=== PATIENT | female | born 1995 | race Caucasian/White ===

== ENCOUNTER 2020-10-14 01:32 | Inpatient (IN) ==
[2020-10-14] MEDS: LACTATED RINGERS 1,000 ML IV SCH ×2 (02:30→13:40)
[2020-10-14 02:36] LABS: Bilirubin,Urine Negative (Negative); Blood, Urine Negative (Negative); Glucose,Urine (UA) >=500 mg/dL (Negative); Ketones,Urine Negative (Negative); Mucus,Urine Occasional /LPF (Occasional); Nitrite,Urine Negative (Negative); Protein,Urine 30 MG/DL; RBC,Urine 1 /HPF (0-4); Squamous Epithelial Cell,Urine Occasional /HPF (0-10); Urine Appearance CLEAR (Clear); Urine Color Straw (Yellow); Urine Specific Gravity 1.022 (1.001-1.035); Urine Urobilinogen < 2.0 EU/DL (0.2-1.0)
[2020-10-14] MEDS: hydrALAZINE 20 MG/1 ML VIAL IV PRN ×2 (02:36→03:07)
[2020-10-14 02:39] LABS: Basophils % 0.3 % (0.0-0.8); Eosinophils % 0.2 % (0.00-10.9); Hematocrit 36.6 VOL% (35.7-47.0); Hemoglobin 11.5 GM/DL (12.0-16.0); Immature Granulocytes % 0.3 %; Immature Granulocytes Absolute 0.02 #; Lymphocytes # 2.7 10*3/uL (1.4-4.0); Lymphocytes % 40.9 % (21.3-54.2); Mean Corpuscular HGB Conc 31.4 GM/DL (32-36); Mean Platelet Volume 12.5 FL (9.6-12.0); Monocytes % 9.7 % (1.7-12.7); Neutrophils % 48.6 % (38.7-73.9); Platelet Count 129 T/CUMM (130-400); Red Blood Count 4.52 MC/CUMM (3.8-5.5); Red Cell Distribution Width 13.8 % (9.3-17.3); White Blood Count 6.5 T/CUMM (4-12)
[2020-10-14 02:48] LABS: Protein/Creatinine Ratio,Urine 2.1 RATIO
[2020-10-14 02:55] LABS: INR 0.9; Partial Thromboplastin Time 29.3 SECS (23.9-33.8)
[2020-10-14 02:58] LABS: Alanine Aminotransferase 22 U/L (13-56); Alkaline Phosphatase 115 U/L (45-117); Aspartate Amino Transferase 21 U/L (0-37); Bilirubin,Total < 0.39 MG/DL (0.20-1.00); Blood Urea Nitrogen 5 MG/DL (7-18); Calcium 8.3 MG/DL (8.5-10.1); Carbon Dioxide 24 MMOL/L (21-32); Estimated Glom Filtration Rate 130 ML/MIN; Glucose 380 MG/DL (74-106); Potassium 3.7 MMOL/L (3.5-5.1); Sodium 136 MMOL/L (136-145); Total Protein 6.3 G/DL (6.4-8.2)
[2020-10-14] MEDS ORDERED: LABETALOL 100 MG/20 ML VIAL IV ONE (03:33)
[2020-10-14] MEDS: LABETALOL 100 MG TABLET PO SCH ×3 (05:00→22:07)
[2020-10-14] MEDS ORDERED: DEXTROSE 50% 25 GM/50 ML VIAL IV PRN ×2 (05:10→06:23)
[2020-10-14] MEDS ORDERED: GLUCAGON 1 MG VIAL IM PRN (05:10)
[2020-10-14] MEDS: INSULIN REGULAR 100 UNIT/ML SUBCUT SCH ×4 (05:22→23:07)
[2020-10-14 06:49] LABS: Barbiturates Screen,Urine Negative (Negative); Benzodiazepines Screen,Urine Negative (Negative); Cannabinoid Screen,Urine Negative (Negative); Opiate Screen,Urine Negative (Negative); Phencyclidine Screen,Urine Negative (Negative)
[2020-10-14] MEDS: BETAMETH SODIUM PHOS/ACETATE 30 MG/5 ML VIAL IM SCH ×2 (07:33→19:36)
[2020-10-14] MEDS: ONDANSETRON 4 MG/2 ML VIAL IV PRN (08:44)
[2020-10-15] MEDS: ONDANSETRON 4 MG/2 ML VIAL IV PRN (03:58)
[2020-10-15] MEDS: INSULIN REGULAR 100 UNIT/ML SUBCUT SCH ×4 (05:15→23:40)
[2020-10-15] MEDS: LABETALOL 100 MG TABLET PO SCH ×3 (05:30→21:55)
[2020-10-15 05:32] LABS: Basophils % 0.1 % (0.0-0.8); Hematocrit 37.2 VOL% (35.7-47.0); Hemoglobin 11.7 GM/DL (12.0-16.0); Immature Granulocytes % 0.6 %; Immature Granulocytes Absolute 0.05 #; Lymphocytes # 1.3 10*3/uL (1.4-4.0); Lymphocytes % 14.2 % (21.3-54.2); Mean Corpuscular HGB Conc 31.5 GM/DL (32-36); Mean Corpuscular Volume 80.7 FL (87-102); Mean Platelet Volume 12.3 FL (9.6-12.0); Monocytes % 4.1 % (1.7-12.7); Platelet Count 135 T/CUMM (130-400); Red Blood Count 4.61 MC/CUMM (3.8-5.5); White Blood Count 8.8 T/CUMM (4-12)
[2020-10-15] MEDS ORDERED: FAMOTIDINE 20 MG/2 ML VIAL IV ONE (08:00)
[2020-10-15] MEDS ORDERED: CITRIC ACID/SODIUM CITRATE 30 ML UDCUP PO ONE (08:00)
[2020-10-15] MEDS ORDERED: ceFAZolin 2,000 MG/50 ML DUPLEX IV ONE (08:00)
[2020-10-15] MEDS ORDERED: OXYTOCIN/LR 20 UNIT/1,000 ML BAG IV ONE ×3 (10:32→12:14)
[2020-10-15] MEDS ORDERED: miSOPROStoL 200 MCG TABLET ONE (10:32)
[2020-10-15] MEDS ORDERED: METHYLERGONOVINE 0.2 MG/1 ML AMP ONE (10:33)
[2020-10-15] MEDS ORDERED: CARBOPROST TROMETHAMINE 250 MCG/ML AMP IM ONE (10:33)
[2020-10-15] MEDS ORDERED: PHENYLEPHRINE 1 MG/10 ML SYRINGE IV ONE ×3 (10:41→11:32)
[2020-10-15] MEDS ORDERED: BUPIVACAINE SPINAL 0.75% 2 ML AMP SPINAL ONE (10:41)
[2020-10-15] MEDS ORDERED: ONDANSETRON 4 MG/2 ML VIAL ONE (10:41)
[2020-10-15] MEDS ORDERED: METOCLOPRAMIDE 10 MG/2 ML VIAL ONE (10:41)
[2020-10-15] MEDS ORDERED: propofoL 200 MG/20 ML VIAL IV ONE (11:22)
[2020-10-15] MEDS ORDERED: GLYCOPYRROLATE 0.4 MG/2 ML VIAL ONE (11:22)
[2020-10-15] MEDS ORDERED: ACETAMINOPHEN INJ 1,000 MG/100 ML VIAL IV ONE (11:31)
[2020-10-15 11:36] LABS: Cord Arterial Blood HCO3 17.6 MMOL/L
[2020-10-15 11:37] LABS: Cord Venous Blood HCO3 23.7 MMOL/L; Cord Venous Blood PCO2 63.9 MMHG; Cord Venous Blood PO2 19.1 MMHG
[2020-10-15 11:41] LABS: Bilirubin,Urine Negative (Negative); Blood, Urine Negative (Negative); Glucose,Urine (UA) >=500 mg/dL (Negative); Hyaline Casts,Urine 1 /LPF (0-3); Ketones,Urine 80 mg/dL (Negative); Mucus,Urine Occasional /LPF (Occasional); Nitrite,Urine Negative (Negative); Protein,Urine Negative; RBC,Urine 1 /HPF (0-4); Squamous Epithelial Cell,Urine Occasional /HPF (0-10); Urine Appearance CLEAR (Clear); Urine Color Yellow (Yellow); Urine Urobilinogen < 2.0 EU/DL (0.2-1.0)
[2020-10-15] MEDS ORDERED: oxyCODONE/ACETAMINOPHEN 5-325 MG TABLET PO PRN ×2 (11:52)
[2020-10-15] MEDS ORDERED: IBUPROFEN 800 MG TABLET PO PRN (11:52)
[2020-10-15] MEDS ORDERED: ACETAMINOPHEN 325 MG TABLET PO PRN (11:52)
[2020-10-15] MEDS ORDERED: WITCH HAZEL PADS 100/JAR TOP PRN (11:52)
[2020-10-15] MEDS ORDERED: LANOLIN 50% CREAM 0.3 OZ TUBE TOP PRN (11:52)
[2020-10-15] MEDS ORDERED: MEASLES/MUMPS/RUBELLA VACCINE 0.5 ML VIAL SUBCUT ONE (11:52)
[2020-10-15] MEDS ORDERED: BENZOCAINE 20%/MENTHOL 0.5% SPRAY 56 GM CAN TOP PRN (11:52)
[2020-10-15] MEDS ORDERED: BISACODYL 10 MG SUPP RECTAL PRN (11:52)
[2020-10-15] MEDS ORDERED: RHO(D) IMMUNE GLOBULIN 300 MCG SYRINGE IM ONE (11:52)
[2020-10-15] MEDS ORDERED: HYDROCORTISONE 2.5% RECTAL CREAM 30 GM TUBE TOP PRN (11:52)
[2020-10-15] MEDS ORDERED: DIPH/TET/ACEL PERT BOOSTER VACCINE 0.5 ML VIAL IM ONE (11:52)
[2020-10-15] MEDS ORDERED: ONDANSETRON 4 MG/2 ML VIAL IV PRN (11:52)
[2020-10-15] MEDS: KETOROLAC 30 MG/1 ML VIAL IV SCH ×2 (14:14→20:28)
[2020-10-15] MEDS: ACETAMINOPHEN 500 MG TABLET PO SCH ×2 (17:36→23:40)
[2020-10-15] MEDS: DOCUSATE SODIUM 100 MG CAPSULE PO SCH (20:31)
[2020-10-16] MEDS: KETOROLAC 30 MG/1 ML VIAL IV SCH ×2 (02:28→08:53)
[2020-10-16] MEDS: LABETALOL 100 MG TABLET PO SCH ×3 (05:30→21:37)
[2020-10-16] MEDS: ACETAMINOPHEN 500 MG TABLET PO SCH (05:30)
[2020-10-16] MEDS: INSULIN REGULAR 100 UNIT/ML SUBCUT SCH ×4 (05:30→21:52)
[2020-10-16 06:05] LABS: Basophils % 0.1 % (0.0-0.8); Hematocrit 33.8 VOL% (35.7-47.0); Hemoglobin 10.4 GM/DL (12.0-16.0); Immature Granulocytes % 0.4 %; Immature Granulocytes Absolute 0.05 #; Lymphocytes # 1.7 10*3/uL (1.4-4.0); Lymphocytes % 14.7 % (21.3-54.2); Mean Corpuscular HGB Conc 30.8 GM/DL (32-36); Mean Corpuscular Volume 82.4 FL (87-102); Mean Platelet Volume 13.4 FL (9.6-12.0); Neutrophils % 77.8 % (38.7-73.9); Platelet Count 128 T/CUMM (130-400); White Blood Count 11.6 T/CUMM (4-12)
[2020-10-16 06:24] LABS: Hypochromasia 1+; Microcytosis 1+
[2020-10-16 06:25] LABS: Platelet Estimate Adequate
[2020-10-16] MEDS: DOCUSATE SODIUM 100 MG CAPSULE PO SCH ×2 (08:53→21:37)
[2020-10-16] MEDS: INSULIN GLARGINE 100 UNIT/ML SUBCUT SCH (13:32)
[2020-10-16] MEDS ORDERED: SIMETHICONE CHEW 80 MG TABLET PO PRN (15:48)
[2020-10-16] MEDS ORDERED: MAGNESIUM HYDROXIDE SUSP 30 ML UDCUP PO PRN (15:48)
[2020-10-17] MEDS: INSULIN REGULAR 100 UNIT/ML SUBCUT SCH ×2 (07:45→11:30)
[2020-10-17] MEDS: INSULIN GLARGINE 100 UNIT/ML SUBCUT SCH (08:30)
[2020-10-17] MEDS: DOCUSATE SODIUM 100 MG CAPSULE PO SCH (08:30)
[2020-10-17] MEDS: LABETALOL 100 MG TABLET PO SCH (09:52)
[2020-10-17 10:51] VITALS: BP 161/78
== END 2020-10-17 12:50 | disposition home or self-care (01) | DRG 786 ==
LOC: N.LDOUT 01:32 → N.LD 01:34 → N.OB 10-16 10:25
PROVIDERS: ADMIT Specialist; ATTEND Specialist
PROC: LDCSECT (ICD-10-PCS; 2020-10-15 11:00)

== ENCOUNTER 2021-11-10 19:14 | Observation (INO) ==
[2021-11-10] MEDS ORDERED: LABETALOL 20 MG/4 ML SYRINGE IV STA ×2 (19:50→21:04)
[2021-11-10] MEDS ORDERED: SODIUM CHLORIDE 0.9% 1,000 ML IV STA (19:50)
[2021-11-10] MEDS ORDERED: ONDANSETRON 4 MG/2 ML VIAL IV STA (19:50)
[2021-11-10 20:30] LABS: Basophils % 0.2 % (0.0-0.8); Eosinophils # 0.1 10*3/uL (0.0-0.87); Eosinophils % 0.6 % (0.00-10.9); Hematocrit 43.4 VOL% (35.7-47.0); Immature Granulocytes % 0.2 %; Immature Granulocytes Absolute 0.02 #; Lymphocytes # 2.8 10*3/uL (1.4-4.0); Lymphocytes % 32.3 % (21.3-54.2); Mean Corpuscular HGB Conc 34.6 GM/DL (32-36); Mean Corpuscular Volume 81.6 FL (87-102); Mean Platelet Volume 11.1 FL (9.6-12.0); Monocytes # 0.6 10*3/uL (0.11-0.8); Neutrophils % 59.7 % (38.7-73.9); Platelet Count 227 T/CUMM (130-400); Red Blood Count 5.32 MC/CUMM (3.8-5.5); White Blood Count 8.8 T/CUMM (4-12)
[2021-11-10 20:50] LABS: Mucus,Urine Occasional /LPF (Occasional); RBC,Urine 1 /HPF (0-4); Squamous Epithelial Cell,Urine Occasional /HPF (0-10)
[2021-11-10 20:51] LABS: Bilirubin,Urine Negative (Negative); Blood, Urine Trace mg/dL (Negative); Glucose,Urine (UA) >=1000 mg/dL (Negative); Ketones,Urine Negative (Negative); Nitrite,Urine Negative (Negative); Protein,Urine Negative (Negative); Urine Appearance Clear (Clear); Urine Color Yellow (Yellow); Urine Specific Gravity <= 1.005 (1.001-1.035); Urine Urobilinogen 0.2 eU/dL (<2.0); Urine pH 5.5 (4.5-8.0)
[2021-11-10 20:57] LABS: Albumin 3.3 G/DL (3.4-5.0); Bilirubin,Total 0.4 MG/DL (0.20-1.00); Calcium 9.3 MG/DL (8.5-10.1); Osmolality,Calculated 279.7 MOS/KG (273-304); Potassium 3.7 MMOL/L (3.5-5.1); Total Protein 7.8 G/DL (6.4-8.2)
[2021-11-10 21:00] LABS: Barbiturates Screen,Urine Negative (Negative); Benzodiazepines Screen,Urine Negative (Negative); Cannabinoid Screen,Urine Negative (Negative); Opiate Screen,Urine Negative (Negative); Phencyclidine Screen,Urine Negative (Negative)
[2021-11-10] MEDS ORDERED: INSULIN REGULAR 100 UNIT/ML IV STA (21:04)
[2021-11-10 21:21] LABS: Arterial Base Excess iSTAT -2 MMOL/L (-2.5-2.5); Arterial Bicarbonate iSTAT 23.5 MMOL/L (20-26); Arterial O2 Saturation iSTAT 96 % (95-100); Arterial PCO2 iSTAT 43 MM HG (35-48); Arterial PO2 iSTAT 84 MM HG (80-95); Arterial Total CO2 iSTAT 25 MMO/L (23-27); Arterial pH iSTAT 7.349 (7.35-7.45)
[2021-11-10] MEDS ORDERED: hydrALAZINE 20 MG/1 ML VIAL IV STA (21:36)
[2021-11-10 23:37] LABS: INR 0.9; PT Patient Result 10.5 SECS (10.1-12.1)
[2021-11-10] MEDS ORDERED: hydrALAZINE 20 MG/1 ML VIAL IV PRN (23:46)
[2021-11-10] MEDS ORDERED: GLUCAGON 1 MG VIAL IM PRN (23:46)
[2021-11-10] MEDS ORDERED: ONDANSETRON 4 MG/2 ML VIAL IV PRN (23:46)
[2021-11-10] MEDS ORDERED: DEXTROSE 10% 250 ML BAG IV PRN (23:46)
[2021-11-10] MEDS ORDERED: ACETAMINOPHEN 325 MG TABLET PO PRN (23:46)
[2021-11-10] MEDS ORDERED: DEXTROSE 50% 25 GM/50 ML VIAL IV PRN (23:46)
[2021-11-11] MEDS: SODIUM CHLORIDE 0.9% 1,000 ML IV SCH ×2 (02:14→08:37)
[2021-11-11 07:12] LABS: Osmolality,Calculated 279.2 MOS/KG (273-304); Potassium 3.6 MMOL/L (3.5-5.1)
[2021-11-11] MEDS: INSULIN REGULAR 100 UNIT/ML SUBCUT SCH ×2 (07:52→12:27)
[2021-11-11] MEDS ORDERED: INSULIN GLARGINE 100 UNIT/ML SUBCUT SCH (09:00)
[2021-11-11] MEDS ORDERED: lisinopriL 20 MG TABLET PO SCH (09:00)
[2021-11-11] MEDS ORDERED: amLODIPine 5 MG TABLET PO SCH (09:00)
[2021-11-11] MEDS ORDERED: ENOXAPARIN 40 MG/0.4 ML SYRINGE SUBCUT SCH (09:00)
[2021-11-11 12:12] VITALS: BP 175/106
[2021-11-11] MEDS ORDERED: AMOXICILLIN 500 MG CAPSULE PO SCH (14:00)
== END 2021-11-11 12:51 | disposition home or self-care (01) ==
LOC: EDBD → EDUNIT# → N.ED 19:14 → N.EDINP 19:14 → N.2W 11-11 01:40
PROVIDERS: ADMIT Internal Medicine; ATTEND Internal Medicine